=== PATIENT | female | born 1985 | race Caucasian/White ===

== ENCOUNTER 2020-01-09 07:39 | Day surgery (SDC) | payer MEDICAID ==
[~2020-01-09 07:39] MED LIST: AMPICILLIN SODIUM 2 GM in NORMAL SALINE 100 ML IV PRN
[2020-01-09] MEDS ORDERED: DEXAMETHASONE SOD PHOSPHATE INJ 4 MG/1 ML VIAL ONE ×2 (08:23→14:47)
[2020-01-09] MEDS ORDERED: HYDROMORPHONE HCL INJ/PF 2 MG/ML AMPULE ONE (08:23)
[2020-01-09] MEDS ORDERED: FENTANYL CITRATE INJ/PF 100 MCG/2 ML AMPUL ONE (08:23)
[2020-01-09] MEDS ORDERED: MIDAZOLAM 2 MG/2 ML INJ ONE ×2 (08:23→09:09)
[2020-01-09] MEDS ORDERED: PROPOFOL INJ 200 MG/20 ML VIAL IV ONE (08:24)
[2020-01-09] MEDS ORDERED: MIDAZOLAM 2 MG/2 ML INJ IV ONE (09:30)
[2020-01-09] MEDS ORDERED: OXYMETAZOLINE HCL 0.05% NASAL SPRAY 15 ML BOTTLE ONE ×2 (10:47→11:43)
[2020-01-09] MEDS ORDERED: LIDOCAINE 2%/EPINEPHRINE INJ 1.7 ML CARTRIDGE ONE (10:47)
[2020-01-09] MEDS ORDERED: COCAINE HCL 4% TOPICAL SOLN 4 ML ONE (10:47)
[2020-01-09] MEDS ORDERED: DIPHENHYDRAMINE HCL 50 MG/ML VIAL IV PRN (11:28)
[2020-01-09] MEDS ORDERED: MEPERIDINE HCL/PF INJ 25 MG/1 ML DISP.SYRIN IV PRN (11:28)
[2020-01-09] MEDS ORDERED: ONDANSETRON HCL INJ/PF 4 MG/2 ML SDV IV PRN ×3 (11:28→14:25)
[2020-01-09] MEDS ORDERED: MORPHINE SULFATE 10 MG/ML INJ IV PRN (11:28)
[2020-01-09] MEDS ORDERED: PROMETHAZINE HCL INJ 25 MG/1 ML VIAL IV PRN (11:28)
[2020-01-09] MEDS ORDERED: FENTANYL CITRATE INJ/PF 100 MCG/2 ML AMPUL IV PRN ×3 (11:28)
[2020-01-09] MEDS ORDERED: CIPROFLOXACIN HCL/FLUOCINOLONE 0.3%/0.025% OTIC ONE (11:32)
[2020-01-09] MEDS: FENTANYL CITRATE INJ/PF 100 MCG/2 ML AMPUL ONE ×2 (13:10→13:18)
--- NOTE | 2020-01-09 13:13 | Operative Report ---
Operative Report-[facility] Operative Report: Date: 09 January 2020 History: 34-year-old female with history of obstructive sleep apnea and left eus tachian tube dysfunction. Presents today for a drug-induced sleep endoscopy, uvulopalatopharyngoplasty, tonsillectomy, placement PE tube left ear and eustachian tube balloon plasty left. Informed consent was obtained from the patient Preoperative Diagnosis: 1. Obstructive sleep apnea 2. Eustachian tube dysfunction, left Postoperative diagnosis: Same as above Procedure: 1. Eustachian tube balloon dilation/reconstruction nasopharynx [CPT = 24946], left 2. Uvulopalatopharyngoplasty 3. Tonsillectomy 4. Myringotomy with insertion PE tube, left ear 5. Rigid nasal endoscopy, left 6. Drug-induced sleep endoscopy [CPT = 22166, mod 22] Surgeon: Modesto Lyn MD, [facility], [facility] Anesthesia: GETA Description of procedure: After receiving informed consent from the patient, the patient was transported to the operating room and placed supine on the operating room table. Anesthesia induced the patient with propofol for the drug-induced sleep endoscopy. A flexible fiberoptic nasopharyngeal laryngoscope was inserted into the left nasal cavity and into the retro-palatal area. This revealed concentric collapse of retro-palatal tissues. The endoscope was then advanced to the hypopharynx where the larynx was in full view. Lateral collapse of the tissues was noted at the retrolingual area. The patient was then given back to anesthesia. After successful induction and intubation by anesthesia cottonoids saturated with 4% cocaine were placed into both nasal cavities for approximately 5 minutes. They were then removed. Nasal septum and inferior turbinate were injected with 2% Xylocaine with 100,000 epinephrine. The cottonoids were placed back into the nasal cavity. The operating microscope was brought into the field and under binocular microscopy a properly sized ear speculum was placed into the left ear. The tympanic membrane was visualized and a radial incision was made in the anterior inferior quadrant. Thin serous fluid suctioned from the middle ear space. A Ghassan PE tube was then placed into this incision and otic drops placed into the external auditory canal. The patient was then turned 90 degrees and placed in slight Trendelenburg. A shoulder roll placed along with a head drape. A MacGyver mouthgag was inserted atraumatically at the oral cavity this was then opened up and the patient suspended. Soft palate was palpated and found to be normal. Red catheters were inserted on each nasal cavity and brought out to elevate the soft palate. The right tonsil was grasped with a tonsil tenaculum, pulled medially and dissected free from the tonsillar fossa using Bovie electrocautery. Hemostasis was obtained with suction Bovie laser cautery. A similar procedure was done on the left side. The right catheters were then released and a DeBakey forceps was used to grasp the uvula which was retracted anteriorly to determine the level of resection. A Bovie electrocautery was then used to remove the uvula along with a portion of the soft palate. The anterior and posterior mucosal edges of the soft palate were approximated with 2-0 Vicryl as was each tonsillar fossa. This resulted in tightening of the posterior pharyngeal soft tissue, which resulted in resolution of the tissue redundancy. Attention was then directed to the eustachian tube balloon dilation portion of the procedure. The cottonoids were removed from the nasal cavity. A rigid 30 degree nasal endoscope along with the AREA eustachian tube balloon dilation system was inserted in the left nasal cavity. The torus tubarius was visualized. Under endoscopic guidance the balloon was inserted into the left eustachian tube lumen. The balloon was then insufflated to 12 atmospheric pressure for 2 minutes. The balloon was then let down and removed from the eustachian tube lumen. The endoscope and balloon system was then removed from the nasal cavity. A similar procedure was performed on the right side. The patient tolerated the procedure well without any complications. Patient was then given back to anesthesia who successfully extubated the patient without any complications. Estimated blood loss: 10 mL Fluids: 1200 mL The patient was transferred to the postanesthesia care unit in stable condition with spontaneous respirations.
[2020-01-09] MEDS ORDERED: PROMETHAZINE HCL INJ 25 MG/1 ML VIAL ONE (13:38)
[2020-01-09] MEDS: MORPHINE SULFATE 10 MG/ML INJ ONE ×2 (13:40→13:45)
[2020-01-09] MEDS ORDERED: ACETAMINOPHEN SUSP 160 MG/5 ML ORAL SYRING PO PRN (14:24)
[2020-01-09] MEDS: DEXAMETHASONE SOD PHOS INJ 10 MG/1 ML VIAL IV SCH ×2 (14:39→21:59)
[2020-01-09] MEDS ORDERED: SUCCINYLCHOLINE CHLORIDE INJ 200 MG/10 ML VIAL ONE (14:47)
[2020-01-09] MEDS ORDERED: ONDANSETRON HCL INJ/PF 4 MG/2 ML SDV ONE (14:47)
[2020-01-09] MEDS ORDERED: ROCURONIUM BROMIDE INJ 50 MG/5 ML VIAL IV ONE (14:47)
[2020-01-09] MEDS: RINGERS SOLUTION,LACTATED 1,000 ML IV PRN ×2 (15:27→22:01)
[2020-01-09] MEDS: HYDROCOD/ACETAMIN 7.5-325 MG/15 ML ORAL SOLN UDCUP PO PRN ×2 (15:27→22:03)
[2020-01-09] MEDS: NICOTINE 21 MG/24 HR PATCH.TD24 TD SCH (17:26)
[2020-01-09] MEDS ORDERED: CIPROFLOXACIN HCL/DEXAMETH OTIC DROP 7.5 ML AS SCH (18:00)
--- NOTE | 2020-01-09 18:02 | PDOC CONSULTATION ---
Consultation Consult Date: 01/09/20 Attending physician:: JONEL RODRIGUEZ Provider Consulted: NICOLE RAE Consult reason:: Medical management History of Present Illness Admission Date/PCP: MIGUE WINTER PA-C History of Present Illness: CATERINA MOYER is a 34 year old female who presented to the hospital for elective planned tonsillectomy for severe RITO. Patient states her medical problems include hypertension, tobacco abuse, marijuana abuse. She also takes Topamax, BuSpar, Robaxin, amitriptyline but denies any psychiatric history. I have ordered the patient a nicotine patch to help with her tobacco cravings as she will not be able to go outside to smoke care. She also takes multiple hypertension medications which will be restarted. She states her pain is well controlled and her surgery went smoothly without complication. Medicine has been consulted by ENT to manage the patient's medical problems and her complicated medication list. Past Medical History Cardiac Medical History: Reports: Hypertension Denies: Coronary Artery Disease, Myocardial Infarction Pulmonary Medical History: Denies: Asthma, Bronchitis, Chronic Obstructive Pulmonary Disease (COPD), Pneumonia Neurological Medical History: Denies: Seizures Musculoskeltal Medical History: Denies: Arthritis Psychiatric Medical History: Denies: Depression Hematology: Denies: Anemia Past Surgical History Past Surgical History: Reports: Tonsillectomy Social History Information Source: Patient Lives with: Family Smoking Status: Current Every Day Smoker Drugs: Marijuana Hx Prescription Drug Abuse: No - Advance Directive Resuscitation Status: Full Code Surrogate healthcare decision maker:: Jaime Wright Family History Family History: None Parental Family History Reviewed: Yes Children Family History Reviewed: Yes Sibling(s) Family History Reviewed.: Yes Medication/Allergy Home Medications: Amitriptyline HCl [Elavil 75 Mg Tablet] 75 mg PO ASDIR PRN 01/04/20 Buspirone HCl [Buspar 10 mg Tablet] 10 mg PO ASDIR PRN 01/04/20 Clonidine HCl [Catapres 0.2 mg Tablet] 0.2 mg PO ASDIR PRN 01/04/20 Hydrochlorothiazide [Hydrodiuril 25 mg Tablet] 25 mg PO QAM 01/04/20 Lisinopril [Prinivil 5 mg Tablet] 5 mg PO DAILY 01/04/20 Methocarbamol [Robaxin 500 mg Tablet] 1,000 mg PO ASDIR 07/17/20 Omeprazole 40 mg PO ASDIR PRN 01/04/20 Topiramate [Topamax 100 Mg Tablet] 100 mg PO ASDIR PRN 01/04/20 Venlafaxine HCl [Effexor 75 mg Tablet] 75 mg PO DAILY 01/04/20 Oxycodone HCl 10 mg PO Q6 PRN 10 Days #240 solution 01/09/20 Allergies/Adverse Reactions: No Known Allergies Allergy (Verified 01/09/20 08:05) Review of Systems All systems: reviewed and no additional remarkable complaints except as stated - Mild oral pain at surgical site, otherwise negative Physical Exam Vital Signs: Temp Pulse Resp BP Pulse Ox 97.9 F 60 16 137/65 H 100 01/09/20 16:20 01/09/20 16:20 01/09/20 16:20 01/09/20 16:20 01/09/20 16:20 Intake & Output 01/08/20 01/09/20 01/10/20 06:59 06:59 06:59 Intake Total 1200 Output Total 20 Balance 1180 Weight 128 kg General appearance: PRESENT: no acute distress, morbidly obese Head exam: PRESENT: atraumatic, normocephalic Eye exam: PRESENT: conjunctiva pink Mouth exam: PRESENT: moist Respiratory exam: PRESENT: clear to auscultation sudhakar. ABSENT: rales, rhonchi, wheezes Cardiovascular exam: PRESENT: RRR. ABSENT: diastolic murmur, rubs, systolic murmur GI/Abdominal exam: PRESENT: normal bowel sounds, soft. ABSENT: distended, guarding, mass, organolmegaly, rebound, tenderness Neurological exam: PRESENT: alert, awake, oriented to person, oriented to place, oriented to time, oriented to situation Psychiatric exam: PRESENT: appropriate affect, normal mood Skin exam: PRESENT: dry, intact, warm Results Laboratory Results: 01/09/20 08:05 01/09/20 01/09/20 08:05 08:05 Potassium 3.6 Serum HCG, Qual NEGATIVE Assessment and Plan - Diagnosis (1) RITO (obstructive sleep apnea) Is this a current diagnosis for this admission?: Yes Plan: Underwent tonsillectomy by ENT who is primary Patient states she could not tolerate CPAP and requested tonsillectomy as an alternative treatment. (2) Hypertension Is this a current diagnosis for this admission?: Yes Plan: Restart home medications as appropriate (3) Tobacco abuse Is this a current diagnosis for this admission?: Yes Plan: Counseled on cessation, not interested in quitting Nicotine patch available (4) Marijuana abuse Is this a current diagnosis for this admission?: Yes Plan: Counseled on cessation, not interested in quitting - Time Time Spent with patient: 35 or more minutes Smoking Cessation Education: over 10 minutes Medications reviewed and adjusted accordingly: Yes Anticipated discharge: Home Within: within 48 hours
[2020-01-09] MEDS: ACETAMINOPHEN SOLN 325 MG/10.15 ML UDCUP PO PRN (20:03)
[2020-01-09] MEDS ORDERED: DEXAMETHASONE SOD PHOSPHATE INJ 4 MG/1 ML VIAL IV SCH (22:00)
[2020-01-09] MEDS: CIPROFLOXACIN HCL/DEXAMETH OTIC DROP 7.5 ML AS SCH (22:03)
[2020-01-10] MEDS: ACETAMINOPHEN SOLN 325 MG/10.15 ML UDCUP PO PRN ×2 (00:43→09:01)
[2020-01-10] MEDS ORDERED: CLONIDINE HCL 0.1 MG TABLET PO PRN (01:13)
[2020-01-10] MEDS ORDERED: AMITRIPTYLINE HCL 75 MG TABLET PO PRN (01:14)
[2020-01-10] MEDS: HYDROCOD/ACETAMIN 7.5-325 MG/15 ML ORAL SOLN UDCUP PO PRN ×2 (05:03→10:51)
[2020-01-10] MEDS: DEXAMETHASONE SOD PHOS INJ 10 MG/1 ML VIAL IV SCH (05:04)
[2020-01-10] MEDS ORDERED: CLONIDINE HCL 0.2 MG TABLET PO PRN (08:25)
[2020-01-10] MEDS: NICOTINE 21 MG/24 HR PATCH.TD24 TD SCH (09:07)
[2020-01-10] MEDS: CIPROFLOXACIN HCL/DEXAMETH OTIC DROP 7.5 ML AS SCH (09:07)
[2020-01-10] MEDS ORDERED: NICOTINE 21 MG/24 HR PATCH.TD24 TD SCH (10:00)
[2020-01-10] MEDS: RINGERS SOLUTION,LACTATED 1,000 ML IV PRN (10:04)
[2020-01-10 11:18] VITALS: BP 116/65
--- NOTE | 2020-01-10 13:00 | PDOC DISCHARGE SUMMARY ---
Impression - Admit/DC Date/PCP Admission Date/Primary Care Provider: MIGUE WINTER PA-C Discharge Date: 01/10/20 - Discharge Diagnosis (1) RITO (obstructive sleep apnea) Is this a current diagnosis for this admission?: Yes - Additional Information Resuscitation Status: Full Code Discharge Diet: As Tolerated, Other (Comments) - Soft tonsil diet Discharge Activity: Activity As Tolerated, Balance Activity w/Rest, Other - No heavy lifting, no bending over, no strenuous activity, no water exposure to the left ear Referrals: MIGUE WINTER PA-C [Primary Care Provider] - 01/22/20 1:30 pm JONEL RODRIGUEZ MD [ACTIVE STAFF] - 02/08/20 9:00 am Home Medications: Amitriptyline HCl [Elavil 75 Mg Tablet] 75 mg PO DAILY 01/04/20 Buspirone HCl [Buspar 10 mg Tablet] 30 mg PO BID 01/04/20 Clonidine HCl [Catapres 0.2 mg Tablet] 0.2 mg PO BIDP PRN MDD 0.4MG 01/04/20 Hydrochlorothiazide [Hydrodiuril 25 mg Tablet] 25 mg PO DAILY 01/04/20 Lisinopril [Prinivil 5 mg Tablet] 5 mg PO DAILY 01/04/20 Methocarbamol [Robaxin 500 mg Tablet] 500 mg PO TIDP PRN 01/04/20 Omeprazole 40 mg PO DAILY 01/04/20 Topiramate [Topamax 100 Mg Tablet] 100 mg PO Q12 01/04/20 Venlafaxine HCl ER [Effexor Xr 75 mg Cap.sr] 75 mg PO BID 01/10/20 History of Present Illiness History of Present Illness: CATERINA MOYER is a 34 year old female who underwent a uvulopalatopharyngoplasty, tonsillectomy, placement PE tube left ear and eustachian tube balloon plasty left. The surgery was on 11 July 2019. See operative note for all details of the surgery. Patient was admitted postoperatively because of her history of obstructive sleep apnea. She had a stable course postoperatively and was discharged in stable condition on 12 July 2019 Hospital Course Hospital Course: Hospital course was stable Physical Exam Vital Signs: Temp Pulse Resp BP Pulse Ox 97.6 F 59 L 19 116/65 95 01/10/20 11:16 01/10/20 11:16 01/10/20 11:16 01/10/20 11:16 01/10/20 11:16 Intake & Output 01/09/20 01/10/20 01/11/20 06:59 06:59 06:59 Intake Total 3561 Output Total 20 Balance 3541 Weight 128.8 kg Exam: Oral cavity/oropharyngeal exam: Oropharyngeal sutures in place. No evidence of bleeding. Neck: Normal. Vital signs stable, afebrile Results Laboratory Results: Potassium 3.6 mmol/L (3.6-5.0) 01/09/20 08:05 Serum HCG, Qual NEGATIVE (NEGATIVE) 01/09/20 08:05 COVID-19 Source NASOPHARYNGEAL 01/04/20 11:51 COVID-19 (DICK) NOT DETECTED 01/04/20 11:51 Stroke Is this a Stroke Patient?: No Acute Heart Failure - Is this a Heart Failure Patient?: No
--- NOTE | 2020-01-10 13:02 | Discharge Summary ---
Discharge Summary (SDC) - Discharge Final Diagnosis: Obstructive sleep apnea Eustachian tube dysfunction Date of Surgery: 01/09/20 Discharge Date: 01/10/20 Condition: Good Forms: Discharge POC-Adult Treatment or Instructions: No heavy lifting, no nose blowing, no strenuous activity, avoid water in left ear, no bending over, soft tonsil diet Referrals: MIGUE WINTER PA-C [Primary Care Provider] - 01/22/20 1:30 pm JONEL RODRIGUEZ MD [ACTIVE STAFF] - 02/08/20 9:00 am Discharge Diet: Other (Comments) - Soft tonsil diet Respiratory Treatments at Home: Deep Breathing/Coughing Discharge Activity: Activity As Tolerated, Balance Activity w/Rest, No Lifting Over 10 Pounds, Other - No heavy lifting, no bending over, no strenuous activity, no water exposure to the left ear Home Care Assistance: None Needed Report the Following to Your Physician Immediately: Shortness of Breath, Vomiting, Increase in Pain
== END 2020-01-10 12:10 | disposition home or self-care (01) ==
LOC: OROUT 07:39 → 3W 14:17 → OROUT 01-10 12:10
PROVIDERS: ATTEND Otolaryngology
DX: G47.33 Obstructive sleep apnea (adult) (pediatric) (principal); H69.83 Other specified disorders of Eustachian tube, bilateral; J35.1 Hypertrophy of tonsils; H90.12 Conductive hearing loss, unilateral, left ear, with unrestricted hearing on the contralateral side; M26.24 Reverse articulation; I10 Essential (primary) hypertension; F17.210 Nicotine dependence, cigarettes, uncomplicated
CPT/HCPCS: 42950; 31575; 42145; 69436; 36415; 84132; 84703; 87635; 88304 ×2; J3490 ×11; J0290; J2250; C9046; J1100 ×3; J3010; J2270; J1170; J0330; J2405; J7050; J7120 ×2; J2704; C9803; J2550